=== PATIENT | female | born 1970 | race Caucasian/White ===

== ENCOUNTER 2018-10-07 21:31 | Emergency (ER) | payer OTHER ==
[~2018-10-07] VITALS: Ht 165.1 cm; Wt 82.3 kg
[2018-10-07 21:38] VITALS: Ht 165.1 cm; Wt 82.3 kg
[2018-10-07 23:39] VITALS: BP 141/86
== END 2018-10-07 23:39 | disposition home or self-care (01) ==
LOC: ED 21:31
DX: R21 Rash and other nonspecific skin eruption (principal); T37.0X5A Adverse effect of sulfonamides, initial encounter; F32.9 Major depressive disorder, single episode, unspecified; Z88.0 Allergy status to penicillin; Z88.2 Allergy status to sulfonamides; Z90.710 Acquired absence of both cervix and uterus; Y92.89 Other specified places as the place of occurrence of the external cause
CPT/HCPCS: J7512; Q0163